=== PATIENT | female | born 1990 | race Caucasian/White ===

== ENCOUNTER 2017-12-03 01:52 | Emergency (ER) | payer OTHER ==
[~2017-12-03] VITALS: Ht 177.8 cm; Wt 190.1 kg
[2017-12-03 03:02] LABS: Influenza A Negative (NEGATIVE); Influenza B Negative (NEGATIVE)
[2017-12-03] MEDS ORDERED: ALBU90OI INH (03:20)
[2017-12-03] MEDS ORDERED: Prednisone20 MG PO (03:20)
[2017-12-03] MEDS ORDERED: DOXY100 PO (03:20)
[2017-12-03] MEDS ORDERED: Cheratussin AC118 ML PO (05:20)
== END 2017-12-03 05:36 | disposition home or self-care (01) ==
LOC: ER 01:52
PROVIDERS: Emergency Medicine
DX: J18.9 Pneumonia, unspecified organism (principal); E66.01 Morbid (severe) obesity due to excess calories; Z68.44 Body mass index [BMI] 60.0-69.9, adult; Z88.1 Allergy status to other antibiotic agents; Z88.8 Allergy status to other drugs, medicaments and biological substances
CPT/HCPCS: 71046; 87804; 94640; 94644; 99284; J1100